=== PATIENT | female | born 1970 | race Caucasian/White ===

== ENCOUNTER 2020-06-29 09:37 | Outpatient (CLI) | payer MEDICARE ==
--- NOTE | 2020-06-29 12:18 | BD ---
DEXA BONE DENSITY STUDY: Date: 06/29/2020 HISTORY: Postmenopausal. FINDINGS: Lumbar Spine: BMD (g/cm2) L1 1.112 T-Score: +1.2 L2 1.039 T-Score: +0.1 L3 1.013 T-Score: -0.6 L4 0.913 T-Score: -1.3 Total 1.007 T-Score: -0.4 Left Femoral Neck: 0.703 T-Score: -1.3 Total Femur: 0.927 T-Score: -0.1 IMPRESSION: 1. Osteopenia of the left femoral neck. 2. Normal bone mineral density of the lumbar spine. POS: OG
== END 2020-06-29 09:38 | disposition home or self-care (01) ==
LOC: BICMAMMO 09:37
PROVIDERS: ATTEND Student in an Organized Health Care Education/Training Program
DX: N95.9 Unspecified menopausal and perimenopausal disorder (principal); M85.89 Other specified disorders of bone density and structure, multiple sites
CPT/HCPCS: 77063; 77067; 77080

== ENCOUNTER 2020-07-10 10:14 | Outpatient (CLI) | payer MEDICARE ==
--- NOTE | 2020-07-10 10:52 | RAD ---
EXAM: XR Lumbar Spine 2 Or 3 View PROVIDED CLINICAL HISTORY: Fracture COMPARISON: None FINDINGS: 5 nonrib-bearing lumbar-type vertebral bodies are demonstrated. There is severe compression deformity involving L1. There is slight retrolisthesis of L1 on L2. Lumbar alignment appears otherwise normal. Vertebral body heights appear otherwise maintained. Lower lumbar spine facet degenerative carlos nges are seen. Pedicles appear intact. No lytic or blastic lesions are seen. IMPRESSION: As above.
== END 2020-07-10 10:15 | disposition home or self-care (01) ==
LOC: BICRAD 10:14
PROVIDERS: ATTEND Neurological Surgery
DX: S32.019A Unspecified fracture of first lumbar vertebra, initial encounter for closed fracture (principal); M43.16 Spondylolisthesis, lumbar region; M47.816 Spondylosis without myelopathy or radiculopathy, lumbar region
CPT/HCPCS: 72100

== ENCOUNTER 2020-07-27 07:49 | Outpatient (CLI) | payer MEDICARE ==
--- NOTE | 2020-07-27 08:35 | ULT ---
LIMITED RIGHT BREAST ULTRASOUND: HISTORY: Abnormal mammogram of 06/29/2020. FINDINGS: Sonographic evaluation of retroareolar aspect of the right breast demonstrates a 1.2 x 0.8 x 1.2 cm c yst at the 9 o'clock position corresponding to the mammographic finding. IMPRESSION: BIRADS 2- benign finding. Return to annual mammographic screening. POS: OFF
== END 2020-07-27 07:50 | disposition home or self-care (01) ==
LOC: BICULT 07:49
PROVIDERS: ATTEND Student in an Organized Health Care Education/Training Program
DX: N63.41 Unspecified lump in right breast, subareolar (principal)